=== PATIENT | male | born 1980 | race Native Hawaiian/Other Pacific Islander ===

== ENCOUNTER 2017-06-06 10:39 | Emergency (ER) | payer OTHER ==
[~2017-06-06] VITALS: Ht 177.8 cm; Wt 98.9 kg
[2017-06-06 10:52] VITALS: BP 138/76
[2017-06-06] MEDS ORDERED: NACL 0.9% 1,000 ML IV SCH (11:00)
--- NOTE | 2017-06-06 11:11 | NUR ---
Patient ambulated to bed 6. RN evaluating patient at bedside.
--- NOTE | 2017-06-06 11:15 | NUR ---
PATIENT PRESENTS TO ED WITH C/O BURNING PAIN UPON VOIDING X YESTERDAY ALSO FREQUENCY DENIES DISCHARGE. BODYACHES; DENIES N/V/D; SKIN IS PINK/WARM/DRY; AAOX4 WITH EVEN AND STEADY GAIT; LUNGS CLEAR BL; HR EVEN AND REGULAR; PT DENIES ANY FEVER, CP, SOB, OR COUGH AT THIS TIME; PATIENT STATES PAIN OF 2/10 AT THIS TIME; PATIENT POSITIONED FOR COMFORT; HOB ELEVATED; BEDRAILS UP X2; BED DOWN. ALL MONITORS IN PLACED.
[2017-06-06 11:16] LABS: BASOPHILS # (AUTO) 0.2 K/uL (0.00-0.22); BASOPHILS % (AUTO) 2.5 % (0.0-2.0); EOSINOPHILS # (AUTO) 0.2 K/uL (0-0.4); EOSINOPHILS % (AUTO) 1.7 % (0.0-4.0); HEMATOCRIT 46.7 % (36-52); HEMOGLOBIN 15.7 g/dL (12.0-18.0); LYMPHOCYTES # (AUTO) 2.1 K/uL (2.0-11.5); LYMPHOCYTES % (AUTO) 21.8 % (20.5-51.1); MEAN CORPUSCULAR HEMOGLOBIN 29 pg (27-31); MEAN CORPUSCULAR HGB CONC 34 g/dL (33-37); MEAN CORPUSCULAR VOLUME 87 fL (80-94); MONOCYTES # (AUTO) 0.3 K/uL (0.8-1.0); MONOCYTES % (AUTO) 3.7 % (1.7-9.3); NEUTROPHILS # (AUTO) 6.6 K/uL (1.8-7.7); NEUTROPHILS % (AUTO) 70.3 % (42.2-75.2); PLATELET COUNT (AUTO) 204 K/uL (140-450); RED BLOOD CELL COUNT(AUTO) 5.35 MIL/uL (4.20-6.10); RED CELL DISTRIBUTION WIDTH 12.4 % (11.6-13.7); WHITE BLOOD COUNT (AUTO) 9.4 K/uL (4.8-10.8)
[2017-06-06 11:22] LABS: BILIRUBIN,URINE NEGATIVE (NEGATIVE); BLOOD, URINE 2+ (NEGATIVE); COLOR,URINE YELLOW (YELLOW); LEUKOCYTE ESTERASE ,URINE 2+ (NEGATIVE); NITRITE, URINE NEGATIVE (NEGATIVE); PROTEIN,URINE NEGATIVE (NEGATIVE); UGLUCOSE NEGATIVE (NEGATIVE); UROBILINOGEN,URINE 0.2 EU/dL (0.2 - 1)
[2017-06-06 11:26] LABS: ANION GAP 12.9 (8-16); CARBON DIOXIDE 28.2 mmol/L (21-32); CREATININE 1.2 mg/dL (0.7-1.3); POTASSIUM 4.1 mmol/L (3.5-5.1)
[2017-06-06 11:27] LABS: APPEARANCE,URINE HAZY (CLEAR)
[2017-06-06 11:36] LABS: ALBUMIN 3.6 g/dL (3.4-5.0); TOTAL BILIRUBIN 0.5 mg/dL (0.0-1.0)
[2017-06-06 11:53] LABS: RBC,URINE 11-20 (MOD) /HPF (0-5); WBC,URINE 16-25 (MOD) /HPF (0-5); WHITE BLOOD CELL CASTS,URINE 0-3 /LPF (None Seen)
[2017-06-06 11:54] LABS: BACTERIA,URINE 1+ /HPF (None Seen)
[2017-06-06 11:55] LABS: MUCUS,URINE 1+ /LPF (None Seen); SQUAMOUS EPITHELIAL CELL,UR 0-3 (FEW) /LPF (0-3 (FEW))
[2017-06-06] MEDS ORDERED: AZITHROMYCIN 250 MG TAB PO ONE (12:15)
[2017-06-06] MEDS ORDERED: cefTRIAXone 1,000 MG VIAL ONE (12:25)
--- NOTE | 2017-06-06 12:35 | NUR ---
PT AMBULATED TO THE RESTROOM;
--- NOTE | 2017-06-06 12:55 | NUR ---
PT RESTING ON BED; AT BEDSIDE;NO ACUTE DISTRESS NOTED;WILL CONTINUE TO MONITOR PT.
[2017-06-06 13:10] VITALS: BP 140/80
--- NOTE | 2017-06-06 13:10 | NUR ---
Patient discharged with v/s stable. Written and verbal after care instructions given and explained. Patient alert, oriented and verbalized understanding of instructions. Ambulatory with steady gait. All questions addressed prior to discharge. ID band removed. Patient advised to follow up with PMD. Rx of DOXYCYCLINE AND PYRIDIUM given. Patient educated on indication of medication including possible reaction and side effects. Opportunity to ask questions provided and answered.
--- NOTE | 2017-06-08 12:34 | NUR ---
FINAL URINE CULTURE RESULTS RECEIVED. M.D. UPDATED. NEW ORDERS RECEIVED, CIPROFLOXACIN 300MG TAB, 1 TAB PO BID X10 DAYS. L/M FOR PT TO RETURN CALL.
[2017-06-08 16:07] LABS: CHLAMYDIA TRACHOMATIS AMP DNA Negative (Negative)
--- NOTE | 2017-06-09 10:57 | NUR ---
ADDENDUM: F/U CALL FOR NEW PRESCRIPTION. LEFT MESSAGE BOTH [facility] AND [place] TO CALL BACK AT [phone]
--- NOTE | 2017-06-09 12:50 | NUR ---
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 HUGHES
== END 2017-06-06 13:10 | disposition home or self-care (01) ==
LOC: MED 10:39
DX: N30.90 Cystitis, unspecified without hematuria (principal); Z11.3 Encounter for screening for infections with a predominantly sexual mode of transmission; R03.0 Elevated blood-pressure reading, without diagnosis of hypertension
CPT/HCPCS: 36415; 80053; 81001; 82150; 83690; 85025; 87086; 87186; 87491; 96361; 96365; 99284; J0696; J7030; J7060